=== PATIENT | male | born 1945 | race Caucasian/White ===

== ENCOUNTER → 2024-07-05 07:05 | Outpatient (REF) | payer MEDICARE, BC, SELFPAY | LOC: RCS 07:05 | PROVIDERS: ATTENDING PHYSICIAN Internal Medicine Cardiovascular Disease; FAMILY PHYSICIAN Internal Medicine | DX: I25.10 Atherosclerotic heart disease of native coronary artery without angina pectoris (principal); R60.0 Localized edema | CPT/HCPCS: 93306 ==

== ENCOUNTER 2024-10-19 09:13 | Emergency (ER) | payer MEDICARE, BC, SELFPAY ==
[2024-10-19 09:21] VITALS: BP 147/79
[2024-10-19 10:52] VITALS: BP 125/80
--- NOTE | 2024-10-19 11:07 | ED.GENMED ---
History of Present Illness
General
Chief Complaint: Abdominal Pain
Source: patient
Exam Limitations: none
Time Seen by Provider: 10/19/24 10:44
Nursing documentation reviewed up to this point in time: agreed with
History of Present Illness
History of Present Illness:
Patient is a 79-year-old male with past medical history of hypertension hyperlipidemia previous DVT (2017) no longer on blood thinner presents to the ER for evaluation of lower abdominal pain. Patient has had lower abdominal pain for the past 5
days worse in the right lower quadrant. He denies any nausea vomiting fever chills. He denies any constipation diarrhea. He feels that pain is worse with laying flat It was especially worse last night while sleeping. He denied is any injury. He
is active and did golf last week.
He denies any frequency urgency. He typically voids 3 times overnight and that is not new.
Past History
Past History
ED Past Medical History: HTN, Hypercholesterolemia and Other (DVT, diverticulitis, cellulitis); Negative IDDM or NIDDM
ED Past Surgical History: Orthopedic and Other (Retinal surgery, cataracts)
Social History
Tobacco: Former smoker
Alcohol: Occasional
Personal:
Living: with family
Employment: Retired
Family History
Family History: Negative Diabetes, Hypertension or CAD
Phy Exam
General Physical Exam
General Presentation: no apparent distress
General age: appears stated age
General Skin: warm and dry
General Habitus: normal
General Mental: alert
General Hydration: appears well hydrated
Gastrointestinal Exam
Gastrointestinal Exam: soft and other (tender throughout lower abdomen worse on the RLQ )
Neurological Exam
Neurological Exam: alert and oriented x3
Musculoskeletal Exam
Musculoskeletal Exam: full ROM
Skin Exam
Skin Exam: normal color and warm/dry
Psychiatric Exam
Psychiatric Exam: normal mood/affect
Course
Orders/Labs/Results
Orders:
Orders
10/19/24 11:04
IV Insert/Care/Rem.- Treatment PRN
0.9% Sodium Chloride 1000 ml [Nss] 1,000 ml IV BOLUS
10/19/24 11:05
CT Abd/Pel (IV only)-DH only Urgent
Comment:
Reason For Exam: lower abd pain
10/19/24 11:30
Basic Metabolic Panel Urgent
Lipase Urgent
10/19/24 11:31
Complete Blood Count/With Diff Urgent
10/19/24 13:14
Urinalysis Reflex To Culture Urgent
Date Specimen was Collected: 10/19/24
Time Specimen was Collected: 13:11
Urine Microscopic Reflex Cult Urgent
10/19/24 14:13
Ketorolac [Toradol] 15 mg IV NOW STA
Abnormal Lab Results
10/19/24 10/19/24 10/19/24
11:30 11:31 13:14
MCH 26.8 L pg
(27.0-31.0)
MCHC 32.8 L g/dL
(33.0-37.0)
RDW 17.0 H %
(11.5-14.5)
MPV 10.5 H fL
(7.4-10.4)
BUN 25 H mg/dl
(9-20)
Glucose 128 H mg/dl
(70-99)
Urine Albumin (Reflex) 1+ A
(Neg - Trace)
10/19/24 11:31
10/19/24 11:30
Vital Signs
Initial and Last Documented VS:
Initial Vital Signs
Temp Pulse Resp BP Pulse Ox
97.8 F 72 16 147/79 98
10/19/24 09:21 10/19/24 09:21 10/19/24 09:21 10/19/24 09:21 10/19/24 09:21
Last Documented Vital Signs
Temp Pulse Resp BP Pulse Ox
97.8 F 65 17 125/80 97
10/19/24 09:21 10/19/24 11:30 10/19/24 11:30 10/19/24 10:52 10/19/24 11:30
MDM/Problems Addressed
Differential Diagnosis Includes:
Not limited to diverticulitis, appendicitis, constipation, bowel obstruction, UTI, muscle injury
MDM/Problems Addressed:
No cause for patient's lower abdominal pain noted during ER workup. Patient is well-appearing in no acute distress complaint of lower abdominal pain for the past several days worse at the right lower quadrant worse with laying down. He reports
pain seems to improve when he is up walking. He had no UTI symptoms and his urine is negative for infection. He denies any fever chills his white count is normal he is afebrile no palpable hernia. Appendix is normal CAT scan shows diverticula
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
PCP
*Radiology
Radiology exam reviewed: radiology read reviewed
*Pulse Oximetry
SaO2: 98
Oxygen Mode of Delivery: Room air
Patient hypoxic: no
*Critical Care Note
Total Time (30-74mins, 75-104mins- exclusive of procedures): Not Applicable
ED Attending Note
-
Portions of this chart may have been created with voice recognition software.� Occasional wrong word or��sound alike� substitutions may have occurred due to the inherent limitations of voice recognition software.
Discharge Plan
Departure
Patient Disposition: Home (Routine Discharge)
Date of Disposition: 10/19/24
Time of Disposition: 14:18
Patient with high blood pressure during this ER visit?: Yes
Condition: Fair
Covid-19: Not Applicable
Discharge Problem:
Abdominal pain
Instructions: Abdominal Pain, BLOOD PRESSURE
Prescriptions:
No Action
losartan 50 MG tablet
50 mg PO BID
chlorthalidone 25 MG tablet
12.5 mg PO DAILY
rosuvastatin [Crestor] 40 MG tablet
40 mg PO QPM
lysine 600 MG tablet
500 mg PO DAILY
Glucosamine Chondroitin PLUS [id number] mg Capsule
1 cap PO QPM Qty: 0
omeprazole 40 MG capsule,delayed release(DR/EC)
40 mg PO DAILY
Centrum Men 1 EACH tablet
1 ea PO QPM
Ca-D3-mag [id number]-cvw-shannan-bor [Calcium 600-D3 Plus (mag-zinc)] 1 EACH tablet
1 ea PO QPM
amlodipine 2.5 MG tablet
2.5 mg PO HS
ibuprofen [Advil] 200 mg Tablet
400 mg PO Q6HPRN PRN (Reason: mild pain)
cephalexin 500 mg capsule
500 mg PO QID 7 Days Qty: 24 0RF
Referrals:
Zoe Bowman MD [Family Provider, Internal Medicine]
Activity Restrictions/Additional Instructions:
as discussed your CAT scan was negative for acute findings your blood work was unremarkable. You may try ibuprofen and Tylenol you also try warm moist heat. Please follow-up closely with your family doctor in the next several days
return if any worsening of symptoms.
Please review your CAT scan findings with your family doctor as discussed.
Interventions
Interventions:
*Risk Screen - Suicide Last Done: 10/19/24 09:21
*General Assessment Last Done: 10/19/24 09:21
*Neglect/Abuse Screening Last Done: 10/19/24 09:21
*ED- Fall Risk Assessment Last Done: 10/19/24 11:37
*ED COVID-19 Vaccine History Last Done: 10/19/24 11:37
QH-Uwydkn-Bmmsdfusdw Assessment Last Done: 10/19/24 11:37
Discharge Date and Time
Print Language: YAKUT
[2024-10-19 11:28] VITALS: BMI 41.2
[2024-10-19] MEDS: NSS 1000 IV (11:29)
[2024-10-19 11:44] LABS: Hematocrit 43.6 % (39.0-52.0); Hemoglobin 14.3 g/dL (13.0-18.0); Mean Corp Hgb Conc. 32.8 g/dL (33.0-37.0); Mean Corpuscular Volume 81.8 fL (80.0-94.0); Nucleated Red Blood Cells % 0 % (-); Platelet Count 143 10^3/uL (130-400); Red Cell Dist. Width 17.0 % (11.5-14.5)
[2024-10-19 12:00] VITALS: BP 118/39
[2024-10-19 12:02] LABS: Blood Urea Nitrogen 25 mg/dl (9-20); Calcium 9.7 mg/dl (8.4-10.2); Carbon Dioxide 30 mmol/L (22-30); Chloride 105 mmol/L (98-107); Estimated Creatinine Clearance 120 ml/min; Glucose 128 mg/dl (70-99); Lipase 38 U/L (23-300); Sodium 138 mmol/L (135-145); eGFR > 60.00
[2024-10-19 13:14] VITALS: BP 119/59
[2024-10-19 13:38] LABS: Urine Character Clear (Clear)
[2024-10-19 13:47] LABS: Urine Red Blood Cell 0-2 /HPF (0-2); Urine Squamous Cell 0-2 /LPF (Few); Urine White Cell 0-2 /HPF (0-5)
[2024-10-19 14:00] VITALS: BP 134/73
[2024-10-19] MEDS: TORADOL 15 MG IV (14:34)
== END 2024-10-19 14:46 | disposition home or self-care (01) ==
LOC: EMR 09:13
PROVIDERS: Nurse Practitioner; EMERGENCY PHYSICIAN Emergency Medicine; FAMILY PHYSICIAN Internal Medicine
DX: R10.30 Lower abdominal pain, unspecified (principal); I10 Essential (primary) hypertension; E78.00 Pure hypercholesterolemia, unspecified; Z87.891 Personal history of nicotine dependence; Z86.718 Personal history of other venous thrombosis and embolism
CPT/HCPCS: 99284; 96374; 74177; 80048; 81003; 81015; 83690; 85025; Q9967